=== PATIENT | female | born 1955 | race Caucasian/White ===

== ENCOUNTER 2022-07-31 15:15 | Outpatient (RCR) | payer MEDICARE, SELFPAY | END 2022-07-31 15:55 | disposition home or self-care (01) | PROVIDERS: PCP Physician Assistant; Visit Provider Orthopaedic Surgery Orthopaedic Surgery of the Spine | DX: Z48.89 Encounter for other specified surgical aftercare (principal) | CPT/HCPCS: 97110; 97112; 97140; 97161; 97535 ==

== ENCOUNTER 2023-03-11 06:32 | Day surgery (SDC) | payer MEDICARE, SELFPAY ==
[2023-03-11 06:41] VITALS: BP 112/57; PULSE 90; RESP 16; TEMP 37.1; O2SAT 93
[2023-03-11 06:43] VITALS: BMI 40.7
[2023-03-11] MEDS: ETHYL CHLORIDE 1 APPLICATION 1 APPLIC TOPICAL (06:55)
[2023-03-11] MEDS: BUPIVACAINE 0.5% 30 ML INJECTION (06:55)
--- NOTE | 2023-03-11 07:04 | SUR.OPER ---
PATIENT QUESTIONS ANSWERED SATISFACTORILY PREOPERATIVELY. PATIENT BROUGHT TO OR #2 PER WHEELCHAIR. Patient positioned supine on OR #2 bed. The perioperative team supported right arm bilaterally on arm boards. Final approval of positioning by surgeon.
[2023-03-11 07:20] VITALS: BP 147/68; PULSE 87; RESP 18
[2023-03-11 07:25] VITALS: BP 141/59; PULSE 85; RESP 18
[2023-03-11 07:30] VITALS: BP 139/67; PULSE 85; RESP 17
[2023-03-11] MEDS: NEOMYCIN/BACITRACIN/POLYMYXIN B 1 APPLIC TOPICAL (07:32)
--- NOTE | 2023-03-11 07:33 | PM.ORPRC ---
Procedure Note Date of procedure: 03/11/23 Procedure: PREOPERATIVE DIAGNOSIS: 1. Left carpal tunnel syndrome POSTOPERATIVE DIAGNOSIS: 1. Left carpal tunnel syndrome PROCEDURE: 1. Left open carpal tunnel release SURGEON: Chaka Corral MD. FIELD OPERATIONS MANAGER: PAOLO Banks ANESTHESIA: Local anesthetic (50:50 mixture of 1% lidocaine with epi and 0.5% marcaine plain) - 10ml total IMPLANTS: None EBL: 2 mL TOURNIQUET: None COMPLICATIONS: None evident INDICATIONS: The patient is a pleasant 67-year-old female who has experienced left hand numbess/tingling affecting the radial 3.5 digits for multiple months. It has progressively gotten worse. Nonoperative management has been tried and failed, and therefore surgery was recommended. DESCRIPTION OF PROCEDURE: Following a thorough discussion of risks, benefits, and alternatives consent was obtained and the operative extremity was marked. The patient was brought to the operating room and placed supine on the operating table. Local anesthesia induction was undertaken in preop holding. No antibiotics were administered as this was planned to be a local case only. Proper time-out was performed identifying proper patient, site, and procedure. The operative extremity was prepped and draped in the appropriate sterile fashion using ChloraPrep. An incision was made in line with the radial border of the ring finger beginning 1 cm distal to the distal wrist crease and progressing for another 2.5cm distal. Caution was taken to stay proximal to Pantoja's cardinal line. Sharp incision through the skin, subcutaneous tissue, and palmar fascia was performed. The thenar musculature was bluntly elevated off the transverse carpal ligament. The ligament was directly visualized, and divided sharply with a 15 blade. This was released from its most proximal to the most distal extent. Metzenbaum scissor was also utilized to release the fascia extension proximally. We confirmed complete release of the transverse carpal ligament. Closure was performed with 4-O nylon in interrupted fashion. Soft dressings were applied, and the patient was transferred to the recovery room in stable condition. PLAN: 1. Encourage elevation of the operative extremity. 2. Range of motion of the fingers and hand/wrist as tolerated. 3. Ibuprofen/acetaminophen and/or oxycodone as needed for pain control. 4. Follow up with PA visit or nurse visit in 12-16 days for wound check and suture removal.
[2023-03-11 07:52] VITALS: BP 123/88; PULSE 65; RESP 16; TEMP 36.8; O2SAT 93
== END 2023-03-11 07:55 | disposition home or self-care (01) ==
PROVIDERS: PCP Family Medicine; Visit Provider Orthopaedic Surgery Sports Medicine
PROC: (CPT 64721; principal; 2023-03-11 07:15)
DX: G56.02 Carpal tunnel syndrome, left upper limb (principal)
CPT/HCPCS: 64721; J0665

== ENCOUNTER 2023-06-29 06:07 | Day surgery (SDC) | payer MEDICARE, SELFPAY ==
[2023-06-29] VITALS (8 sets, daily range): BP systolic 112–133; BP diastolic 50–80; PULSE 79–89; RESP 16–18; TEMP 36.2–37.1; O2SAT 92–96; BMI 40.7
[2023-06-29] MEDS: BUPIVACAINE 0.5% 30 ML INJECTION (07:00)
[2023-06-29] MEDS: ETHYL CHLORIDE 1 APPLICATION 1 APPLIC TOPICAL (07:00)
--- NOTE | 2023-06-29 07:39 | P.ORPRC_ITS ---
Procedure Note Date of procedure: 06/29/23 Procedure: PREOPERATIVE DIAGNOSIS: 1. Right carpal tunnel syndrome POSTOPERATIVE DIAGNOSIS: 1. Right carpal tunnel syndrome PROCEDURE: 1. Right open carpal tunnel release SURGEON: Chaka Corral MD. STATE FARM AGENT: Karl Lynch PA-C ANESTHESIA: Local anesthetic (50:50 mixture of 2% lidocaine with epi and 0.5% marcaine plain) - 10ml total IMPLANTS: None EBL: 2 mL TOURNIQUET: None COMPLICATIONS: None evident INDICATIONS: The patient is a pleasant 68-year-old female who has experienced right hand numbess/tingling affecting the radial 3.5 digits for multiple months. It has progressively gotten worse. Nonoperative management has been tried and failed, and therefore surgery was recommended. DESCRIPTION OF PROCEDURE: Following a thorough discussion of risks, benefits, and alternatives consent was obtained and the operative extremity was marked. The patient was brought to the operating room and placed supine on the operating table. Local anesthesia induction was undertaken in preop holding. No antibiotics were administered as this was planned to be a local case only. Proper time-out was performed identifying proper patient, site, and procedure. The operative extremity was prepped and draped in the appropriate sterile fashion using ChloraPrep. An incision was made in line with the radial border of the ring finger beginning 1 cm distal to the distal wrist crease and progressing for another 2.5cm distal. Caution was taken to stay proximal to Pantoja's cardinal line. Sharp incision through the skin, subcutaneous tissue, and palmar fascia was performed. The thenar musculature was bluntly elevated off the transverse carpal ligament. The ligament was directly visualized, and divided sharply with a 15 blade. This was released from its most proximal to the most distal extent. Metzenbaum scissor was also utilized to release the fascia extension proximally. We confirmed complete release of the transverse carpal ligament. Closure was performed with 4-O nylon in interrupted fashion. Soft dressings were applied, and the patient was transferred to the recovery room in stable condition. PLAN: 1. Encourage elevation of the operative extremity. 2. Range of motion of the fingers and hand/wrist as tolerated. 3. Ibuprofen/acetaminophen and/or oxycodone as needed for pain control. 4. Follow up with PA visit or nurse visit in 12-16 days for wound check and suture removal.
--- NOTE | 2023-06-29 08:12 | SUR.PHASEII ---
Pt returned from OR to recliner chair. Patient denies pain, tolerates water, verbalizes readiness to be discharged and understanding of discharge instructions.
== END 2023-06-29 08:03 | disposition home or self-care (01) ==
PROVIDERS: PCP Family Medicine; Visit Provider Orthopaedic Surgery Sports Medicine
PROC: (CPT 64721; principal; 2023-06-29 07:15)
DX: G56.01 Carpal tunnel syndrome, right upper limb (principal)
CPT/HCPCS: 64721; J0665

== ENCOUNTER 2024-03-23 14:30 | Outpatient (RCR) | payer MEDICARE, SELFPAY | END 2024-07-07 09:15 | disposition home or self-care (01) | PROVIDERS: PCP Family Medicine; Visit Provider Family Medicine | DX: M25.521 Pain in right elbow (principal); M77.01 Medial epicondylitis, right elbow; Z51.89 Encounter for other specified aftercare | CPT/HCPCS: 97035; 97140; 97165 ==